=== PATIENT | female | born 1980 | race Two or more races ===

== ENCOUNTER 2022-10-22 11:54 | Inpatient (IN) | payer OTHER, MEDICAID ==
[~2022-10-22] VITALS: Ht 152.4 cm; Wt 96.4 kg
[2022-10-22] MEDS ORDERED: ASPirin 81 mg TAB PO ONE (12:00)
[2022-10-22 12:22] LABS: Basophils # (auto) 0.1 10 ^3/uL (0-0.2); Eosinophils # (auto) 0.1 10 ^3/uL (0-0.8); Eosinophils % (auto) 0.8 % (0.0-7.0); Hemoglobin 13.3 g/dL (12.2-16.2); Monocytes # (auto) 0.7 10 ^3/uL (0-1.3); Monocytes % (auto) 6.6 % (0.0-12.0); Neutrophils # (auto) 6.1 10 ^3/uL (1.6-8.6)
[2022-10-22 12:24] LABS: Basophils % (auto) 0.7 % (0.0-2.0); Hematocrit 39.8 % (36.0-46.0); Lymphocytes # (auto) 3.7 10 ^3/uL (0.4-5.4); Lymphocytes % (auto) 34.5 % (10.0-50.0); Mean Corpuscular Hgb Conc. 33.4 g/dL (32.0-36.0); Neutrophils % (auto) 57.4 % (37.0-80.0); Nucleated Red Blood Cells % 0.2 %; Red Blood Cells 4.92 10^6/uL (4.0-5.20); Red Cell Distribution Width 15.6 % (11.8-14.3); White Blood Cell 10.6 10^3/uL (4.4-10.8)
[2022-10-22 12:30] LABS: INR 0.92 (0.9-1.15); Partial Thromboplastin Time 26.1 sec (24.6-33.4)
[2022-10-22 12:36] LABS: Albumin 3.9 g/dL (3.4-5.0); Calcium 8.6 mg/dL (8.5-10.1); Magnesium 2.4 mg/dL (1.6-2.6); Potassium 4.1 mmol/L (3.5-5.1)
[2022-10-22 12:40] LABS: BUN/Creatinine Ratio 18.1 (10.0-20.0); Bilirubin, Total 0.3 mg/dL (0.2-1.0); Total Protein 7.4 g/dL (6.4-8.2)
[2022-10-22] MEDS ORDERED: IOHEXOL 350 MG/ML 100ML IJ ONE (13:41)
[2022-10-22] MEDS ORDERED: MORPHINE SULFATE INJ 2 MG/ml SYRG IV ONE (15:45)
[2022-10-22] MEDS ORDERED: ONDANSETRON HCL 4 MG/2 ML VIAL IV ONE (15:45)
[2022-10-22] MEDS ORDERED: GAB100C (16:14)
[2022-10-22] MEDS ORDERED: ACETAMINOPHEN 325 MG TAB PO PRN (16:15)
[2022-10-22] MEDS ORDERED: HYDROcodone-ACET 5/325MG TAB PO PRN (16:15)
[2022-10-22] MEDS ORDERED: NITROGLYCERIN 0.4 MG SL TAB SL PRN (16:15)
[2022-10-22] MEDS ORDERED: MORPHINE SULFATE INJ 2 MG/ml SYRG IV PRN ×2 (16:15)
[2022-10-22] MEDS ORDERED: ENOXAPARIN SOD 80 MG/0.8ML SYRINGE SC ONE (16:30)
[2022-10-22 16:33] LABS: Urine Bacteria NONE SEEN /hpf (None Seen); Urine Blood Negative /uL (Negative); Urine Specific Gravity 1.043 (1.001-1.035); Urine WBC 1 /hpf (0 - 5)
[2022-10-22 16:48] LABS: Cholesterol 193 mg/dL (< 200)
[2022-10-22 16:50] LABS: Alcohol, Urine < 3.0 mg/dL (0-10); Amphetamine Screen, Urine NEGATIVE (NEGATIVE); Barbiturate Scree,Urine NEGATIVE (NEGATIVE); Benzodiazephine Screen, Urine NEGATIVE (NEGATIVE); Cannabinoid Screen, Urine NEGATIVE (NEGATIVE); Cocaine Screen, Urine NEGATIVE (NEGATIVE); Opiate Scree,Urine NEGATIVE (NEGATIVE); Phencyclidine Screen, Urine NEGATIVE (NEGATIVE)
[2022-10-22 16:51] LABS: HDL Cholesterol 65 mg/dL (40-59); LDL Cholesterol 113 mg/dL (< 100); Triglycerides 121 mg/dL (< 150)
[2022-10-22] MEDS: ATORVASTATIN 20 MG TAB PO SCH (21:18)
[2022-10-22] MEDS: GABAPENTIN 100 MG CAP PO SCH (21:18)
[2022-10-22 22:00] VITALS: BP 135/79
[2022-10-23 05:00] VITALS: BP 117/66
[2022-10-23] MEDS: GABAPENTIN 100 MG CAP PO SCH ×3 (06:00→22:00)
[2022-10-23 06:41] LABS: Albumin 3.4 g/dL (3.4-5.0); Calcium 8.1 mg/dL (8.5-10.1); Potassium 4.5 mmol/L (3.5-5.1)
[2022-10-23 06:44] LABS: BUN/Creatinine Ratio 24.6 (10.0-20.0); Bilirubin, Total 0.2 mg/dL (0.2-1.0); Total Protein 6.4 g/dL (6.4-8.2)
[2022-10-23 06:47] LABS: Basophils # (auto) 0 10 ^3/uL (0-0.2); Basophils % (auto) 0.5 % (0.0-2.0); Eosinophils # (auto) 0.1 10 ^3/uL (0-0.8); Hematocrit 36.6 % (36.0-46.0); Hemoglobin 12.1 g/dL (12.2-16.2); Lymphocytes # (auto) 2.8 10 ^3/uL (0.4-5.4); Lymphocytes % (auto) 39.1 % (10.0-50.0); Mean Corpuscular Hemoglobin 26.9 pg (28.0-32.0); Mean Corpuscular Volume 81.3 fL (80.0-100.0); Monocytes # (auto) 0.5 10 ^3/uL (0-1.3); Neutrophils # (auto) 3.7 10 ^3/uL (1.6-8.6); Neutrophils % (auto) 51.4 % (37.0-80.0); Nucleated Red Blood Cells % 0.1 %; Red Blood Cells 4.51 10^6/uL (4.0-5.20); Red Cell Distribution Width 15.2 % (11.8-14.3); White Blood Cell 7.1 10^3/uL (4.4-10.8)
[2022-10-23] MEDS ORDERED: SODIUM CHLORIDE 0.9% 1,000 ML IV ONE (08:45)
[2022-10-23 09:00] VITALS: BP 122/67
[2022-10-23] MEDS: ASPirin 81 mg TAB PO SCH (10:00)
[2022-10-23] MEDS: ENOXAPARIN SOD 40 MG/0.4 ML SYRINGE SC SCH (10:01)
[2022-10-23] MEDS: SODIUM CHLORIDE 0.9% 1,000 ML IV SCH ×3 (10:57→22:40)
[2022-10-23 13:00] VITALS: BP 100/44
[2022-10-23] MEDS: METOPROLOL TARTRATE 25 MG TAB PO SCH ×2 (14:22→21:59)
[2022-10-23 17:00] VITALS: BP 126/80
[2022-10-23] MEDS ORDERED: ALPR0.25 PO (19:57)
[2022-10-23 22:00] VITALS: BP_SYST 125; BP_SYST 95; BP_DIAS 52; BP_DIAS 69
[2022-10-23] MEDS: ATORVASTATIN 20 MG TAB PO SCH (22:00)
[2022-10-24 05:00] VITALS: BP 102/46
[2022-10-24] MEDS: GABAPENTIN 100 MG CAP PO SCH ×3 (05:53→21:26)
[2022-10-24 09:00] VITALS: BP 96/42
[2022-10-24] MEDS: SODIUM CHLORIDE 0.9% 1,000 ML IV SCH ×2 (09:08→18:58)
[2022-10-24] MEDS: METOPROLOL TARTRATE 25 MG TAB PO SCH ×2 (09:20→21:26)
[2022-10-24] MEDS ORDERED: REGADENOSON 0.4 MG/5 ML SYRG IV ONE ×2 (09:44→10:45)
[2022-10-24 10:00] VITALS: BP 130/63
[2022-10-24] MEDS: ENOXAPARIN SOD 40 MG/0.4 ML SYRINGE SC SCH (11:42)
[2022-10-24] MEDS: ASPirin 81 mg TAB PO SCH (11:42)
[2022-10-24] MEDS ORDERED: ALPRAZolam 0.25 MG TAB PO PRN (12:00)
[2022-10-24 13:00] VITALS: BP 116/67
[2022-10-24 17:00] VITALS: BP 139/68
[2022-10-24] MEDS: ATORVASTATIN 20 MG TAB PO SCH (21:25)
[2022-10-24 22:00] VITALS: BP 111/55
[2022-10-25] MEDS: SODIUM CHLORIDE 0.9% 1,000 ML IV SCH ×3 (04:13→16:45)
[2022-10-25 05:00] VITALS: BP 97/45
[2022-10-25 05:26] LABS: BUN/Creatinine Ratio 19.4 (10.0-20.0); Calcium 8.2 mg/dL (8.5-10.1); Potassium 4.3 mmol/L (3.5-5.1)
[2022-10-25] MEDS: GABAPENTIN 100 MG CAP PO SCH ×2 (05:53→14:00)
[2022-10-25 08:45] VITALS: BP 124/58
[2022-10-25] MEDS: ENOXAPARIN SOD 40 MG/0.4 ML SYRINGE SC SCH ×2 (10:00→10:34)
[2022-10-25] MEDS: METOPROLOL TARTRATE 25 MG TAB PO SCH (10:33)
[2022-10-25] MEDS: ASPirin 81 mg TAB PO SCH (10:33)
[2022-10-25 12:45] VITALS: BP 118/73
[2022-10-25] MEDS ORDERED: ASPI-325 PO (12:52)
[2022-10-25] MEDS ORDERED: MET25T PO (12:52)
[2022-10-25 16:05] VITALS: BP 124/58
== END 2022-10-25 17:30 | disposition home or self-care (01) | DRG 311 ==
LOC: ER 11:54 → TELE 16:14 → TELE-CENTR 18:13
PROVIDERS: ADMIT Registered Nurse; ATTEND Internal Medicine
DX: I20.0 Unstable angina (principal); Z68.41 Body mass index [BMI] 40.0-44.9, adult; I49.3 Ventricular premature depolarization; F41.9 Anxiety disorder, unspecified; E66.01 Morbid (severe) obesity due to excess calories; J45.909 Unspecified asthma, uncomplicated; Z88.0 Allergy status to penicillin; Z82.49 Family history of ischemic heart disease and other diseases of the circulatory system; Z83.3 Family history of diabetes mellitus; Z87.891 Personal history of nicotine dependence; Z90.49 Acquired absence of other specified parts of digestive tract; Z71.3 Dietary counseling and surveillance; Z91.040 Latex allergy status
CPT/HCPCS: 36415; 71045; 71275; 78452; 80048; 80053; 80061; 80307; 81001; 82306; 83735; 83880; 84443; 84484; 84702; 85025; 85379; 85610; 85730; 93005; 93017; 93306; 96374; 96375; G0378; J2405

== ENCOUNTER 2023-04-20 20:06 | Emergency (ER) | payer OTHER, MEDICAID ==
[~2023-04-20] VITALS: Ht 152.4 cm; Wt 74.5 kg
[~2023-04-20 20:06] MED LIST: ALPR0.25 PO; ASPI-325 PO; GAB100C; MET25T PO
[2023-04-20 20:07] VITALS: BP 134/90; RESP 20; O2SAT 100
[2023-04-20 20:10] VITALS: PULSE 119
[2023-04-20 21:02] LABS: Alanine Aminotransferase 36 U/L (7-40); Albumin 4.7 g/dL (3.2-4.8); Alkaline Phosphatase 116 U/L (46-116); Anion Gap 8 (5-15); Aspartate Aminotransferase 24 U/L (13-40); BUN/Creatinine Ratio 14.5 (10.0-20.0); Bilirubin, Total 0.7 mg/dL (0.2-1.0); Blood Urea Nitrogen 9 mg/dL (9-23); Calcium 9.2 mg/dL (8.7-10.4); Carbon Dioxide 26 mmol/L (20-30); Chloride 105 mmol/L (98-107); Glucose 100 mg/dL (74-106); Potassium 3.9 mmol/L (3.5-5.1); Sodium 139 mmol/L (136-145); Total Protein 7.2 g/dL (5.7-8.2)
[2023-04-20 21:04] LABS: Basophils # (auto) 0.1 10 ^3/uL (0-0.2); Basophils % (auto) 0.6 % (0.0-2.0); Eosinophils # (auto) 0.3 10 ^3/uL (0-0.8); Eosinophils % (auto) 3.5 % (0.0-7.0); Hematocrit 29.6 % (36.0-46.0); Hemoglobin 9.7 g/dL (12.2-16.2); Lymphocytes # (auto) 2.7 10 ^3/uL (0.4-5.4); Lymphocytes % (auto) 28.3 % (10.0-50.0); Mean Corpuscular Hgb Conc. 32.8 g/dL (32.0-36.0); Mean Corpuscular Volume 85.2 fL (80.0-100.0); Monocytes # (auto) 0.7 10 ^3/uL (0-1.3); Monocytes % (auto) 7.6 % (0.0-12.0); Neutrophils # (auto) 5.7 10 ^3/uL (1.6-8.6); Nucleated Red Blood Cells % 0.1 %; Red Blood Cells 3.48 10^6/uL (4.0-5.20); Red Cell Distribution Width 14.6 % (11.8-14.3); White Blood Cell 9.5 10^3/uL (4.4-10.8)
[2023-04-20 21:09] LABS: Magnesium 2.2 mg/dL (1.6-2.6)
[2023-04-20 21:20] LABS: INR 0.94 (0.9-1.15); Partial Thromboplastin Time 24.8 SEC (24.5-34.5); Prothrombin Time 9.9 sec (9.3-11.8)
== END 2023-04-20 23:10 | disposition left against medical advice (07) ==
LOC: ER 20:06
DX: R07.89 Other chest pain (principal); Z53.21 Procedure and treatment not carried out due to patient leaving prior to being seen by health care provider
CPT/HCPCS: 36415; 80053; 83735; 83880; 84484; 85025; 85379; 85610; 85730; 93005